=== PATIENT | male | born 1985 | race African-American/Black ===

== ENCOUNTER 2019-12-08 22:59 | Emergency (ER) | payer MEDICAID ==
[~2019-12-08] VITALS: Ht 175.3 cm; Wt 70.0 kg
[2019-12-08] MEDS ORDERED: ONDANSETRON HCL 4MG/2ML INJ IV STA (23:45)
[2019-12-08] MEDS ORDERED: MORPHINE SULFATE 4 MG/ML CPJ (NOT FOR IM USE) IV STA (23:45)
[2019-12-09] MEDS ORDERED: VANCOMYCIN 1 G PREMIX 200 ML IV SCH (00:15)
[2019-12-09] MEDS ORDERED: AZITHROMYCIN 500 MG in DEXT 5% WATER 250 ML IV SCH (00:15)
[2019-12-09] MEDS ORDERED: PIPERACILLIN/TAZOBACTAM 3.375GM/50ML PREMIX IV ONE (00:15)
[2019-12-09 00:22] LABS: BASOPHILS % 1.1 % (0.0-2.0); EOSINOPHILS % 1.4 % (0.0-5.0); HEMATOCRIT. 38.7 % (42.0-52.0); HEMOGLOBIN. 12.7 g/dL (14.0-18.0); LYMPHOCYTES % 34.6 % (20.0-50.0); MEAN CORPUSCULAR HEMOGLOBIN 30.5 pg (28.0-32.0); MEAN CORPUSCULAR VOLUME 92.9 fL (80.0-94.0); MEAN PLATELET VOLUME 7.3 fl (7.4-10.4); MONOCYTES % 10.8 % (2.0-8.0); NEUTROPHILS % 52.1 % (40.0-76.0); PLATELET 261 x1000/uL (130-400); RED BLOOD CELL COUNT 4.17 mill/uL (4.7-6.1); RED CELL DISTRIBUTION WIDTH 14.2 % (11.6-14.6)
[2019-12-09 00:28] LABS: CHLORIDE 107 mEq/L (98-107)
[2019-12-09 00:35] LABS: ETHANOL BLOOD < 10 mg/dL
[2019-12-09 00:39] LABS: CLARITY URINE CLEAR (CLEAR); COLOR URINE YELLOW (YELLOW); KETONES URINE NEGATIVE (NEGATIVE); LEUKOCYTE ESTERASE URINE NEGATIVE (NEGATIVE); NITRITE URINE NEGATIVE (NEGATIVE); OCCULT BLOOD URINE TRACE (NEGATIVE); PROTEIN URINE NEGATIVE (NEGATIVE); SPECIFIC GRAVITY URINE 1.008 (1.005-1.030); UROBILINOGEN URINE 0.2 E.U./dL (0.2-1.0)
[2019-12-09] MEDS ORDERED: PIPERACILLIN/TAZ 3.375G PREMIX 50 ML IV NR (00:45)
[2019-12-09 01:09] LABS: *BENZODIAZEPINES SCREEN URINE NEGATIVE (NEGATIVE); *COCAINE SCREEN URINE NEGATIVE (NEGATIVE); METHADONE URINE SCREEN NEGATIVE (NEGATIVE); OPIATES URINE SCREEN NEGATIVE (NEGATIVE); PHENCYCLIDINE URINE SCREEN NEGATIVE (NEGATIVE)
[2019-12-09 01:10] LABS: *AMPHETAMINES SCREEN URINE NEGATIVE (NEGATIVE); *BARBITURATES SCREEN URINE NEGATIVE (NEGATIVE); CANNABINOID URINE SCREEN PRESUMTIVE POSITIVE (NEGATIVE)
[2019-12-09 03:52] VITALS: BP 117/68
== END 2019-12-09 03:53 | disposition home or self-care (01) ==
LOC: ER 22:59
DX: J18.9 Pneumonia, unspecified organism (principal); R07.89 Other chest pain; D64.9 Anemia, unspecified; J45.909 Unspecified asthma, uncomplicated; F12.10 Cannabis abuse, uncomplicated; Z90.49 Acquired absence of other specified parts of digestive tract
CPT/HCPCS: 36415; 71045; 80053; 80305; 80320; 81003; 83605; 83690; 83880; 84484; 85025; 86850; 86900; 86901; 93005; 96365; 96366; 96367; 96368; 96375; 99284; J0456; J2270; J2405; J2543; J3370; J7060; G0480

== ENCOUNTER 2019-12-20 15:29 | Emergency (ER) | payer MEDICAID ==
[~2019-12-20] VITALS: Ht 180.3 cm; Wt 73.0 kg
[2019-12-20] MEDS ORDERED: ALBUTEROL (0.083%) 2.5MG/3ML NEB HHN STA (16:57)
[2019-12-20] MEDS ORDERED: IPRATROPIUM BROMIDE (0.02%) 0.5MG/2.5ML NEB HHN STA (16:57)
[2019-12-20] MEDS ORDERED: LEVOFLOXACIN 750MG PREMIX 150 ML IV ONE (17:45)
[2019-12-20] MEDS ORDERED: SODIUM CHLORIDE 0.9% 1000ML BAG (SEPSIS BOLUS) IV ONE (17:45)
[2019-12-20 18:08] LABS: BG CARBOXYHEMOGLOBIN 2.8 % (0.5-1.5); BG DEOXYHEMOGLOBIN 2.7 % (0.0-5.0); BG FRACTION INSPIRED OXYGEN 21; BG HCO3 ACT 24.4 mmol/L (22.0-26.0); BG METHEMOGLOBIN 0.1 % (0.0-1.5); BG OXYGEN SATURATION 97.2 % (92.0-98.5); BG OXYHEMOGLOBIN 94.4 % (94.0-97.0); BG PCO2 31.4 mmHg (35.0-45.0); BG PH 7.508 (7.350-7.450); BG PO2 85.9 mmHg (75.0-100.0); BG SAMPLE SITE RIGHT RADIAL; BG TOTAL HEMOGLOBIN 12.7 g/dL (12.0-18.0); BG VENT MODE ROOM AIR
[2019-12-20 18:18] LABS: BASOPHILS % 1.3 % (0.0-2.0); EOSINOPHILS % 2.3 % (0.0-5.0); HEMATOCRIT. 36.4 % (42.0-52.0); HEMOGLOBIN. 12.1 g/dL (14.0-18.0); LYMPHOCYTES % 41.3 % (20.0-50.0); MEAN CORPUSCULAR HEMOGLOBIN 30.4 pg (28.0-32.0); MEAN CORPUSCULAR VOLUME 91.4 fL (80.0-94.0); MEAN PLATELET VOLUME 6.7 fl (7.4-10.4); MONOCYTES % 7.6 % (2.0-8.0); NEUTROPHILS % 47.5 % (40.0-76.0); PLATELET 385 x1000/uL (130-400); RED BLOOD CELL COUNT 3.99 mill/uL (4.7-6.1); RED CELL DISTRIBUTION WIDTH 13.3 % (11.6-14.6)
[2019-12-20 18:23] LABS: CHLORIDE 103 mEq/L (98-107)
[2019-12-20] MEDS ORDERED: HYDROCODONE/ACETAMINOPHEN 5/325MG TABLET PO ONE (20:00)
[2019-12-20] MEDS ORDERED: WATER IV SCH (20:15)
[2019-12-20] MEDS ORDERED: CEFTRIAXONE SODIUM 1 G/VIAL IV ONE (20:15)
[2019-12-20] MEDS ORDERED: DEXT 5% IV SCH (20:15)
[2019-12-20] MEDS ORDERED: PENTAMIDINE ISETHIONATE IV SCH (20:15)
[2019-12-20] MEDS ORDERED: AZITHROMYCIN 500 MG in DEXT 5% WATER 250 ML IV SCH (20:15)
[2019-12-20] MEDS ORDERED: SULFAMETHOXAZOLE/TRIMETHOPRIM 800/160MG TABLET PO ONE (22:15)
[2019-12-20] MEDS ORDERED: ONDANSETRON HCL 4MG/2ML INJ IV ONE (23:30)
[2019-12-20] MEDS ORDERED: MORPHINE SULFATE 4 MG/ML CPJ (NOT FOR IM USE) IV ONE (23:30)
[2019-12-21] MEDS ORDERED: LEVOFLOXACIN 750MG PREMIX 150 ML IV NR (04:15)
[2019-12-21] MEDS: MORPHINE SULFATE 2 MG/ML CPJ (NOT FOR IM USE) IV PRN ×2 (04:22→08:46)
[2019-12-21 04:44] LABS: CLARITY URINE CLEAR (CLEAR); COLOR URINE YELLOW (YELLOW); KETONES URINE NEGATIVE (NEGATIVE); LEUKOCYTE ESTERASE URINE NEGATIVE (NEGATIVE); NITRITE URINE NEGATIVE (NEGATIVE); OCCULT BLOOD URINE NEGATIVE (NEGATIVE); PH URINE 6.5 (4.5-8.0); PROTEIN URINE NEGATIVE (NEGATIVE); SPECIFIC GRAVITY URINE 1.016 (1.005-1.030)
[2019-12-21] MEDS ORDERED: IPRATROPIUM/ALBUTEROL 0.5-3(2.5)MG/3ML NEB HHN PRN (08:45)
[2019-12-21] MEDS ORDERED: ACETAMINOPHEN 325MG TABLET PO PRN (08:45)
[2019-12-21] MEDS ORDERED: BENZONATATE 100MG CAPSULE PO PRN (08:45)
[2019-12-21] MEDS ORDERED: HYDROCODONE/ACETAMINOPHEN 5/325MG TABLET PO PRN (08:45)
[2019-12-21] MEDS ORDERED: ONDANSETRON HCL 4MG/2ML INJ IV PRN (08:45)
[2019-12-21] MEDS ORDERED: POTASSIUM CHLORIDE 20MEQ TABLET SR PO NR (08:45)
[2019-12-21] MEDS ORDERED: METHYLPREDNISOLONE SOD SUCC 40 MG/ML VIAL IV SCH (09:00)
[2019-12-21 09:27] LABS: LDL CHOLESTEROL 59 mg/dL (5-100)
[2019-12-21 09:28] LABS: HDL CHOLESTEROL 36 mg/dL (40-59)
[2019-12-21] MEDS ORDERED: KETOROLAC 30MG/ML VIAL IV NR (09:45)
[2019-12-21] MEDS ORDERED: LEVO750T21 MT (09:49)
[2019-12-21 10:24] VITALS: BP 124/74
[2019-12-21] MEDS ORDERED: IPRATROPIUM/ALBUTEROL 0.5-3(2.5)MG/3ML NEB HHN SCH (12:00)
[2019-12-21] MEDS ORDERED: KETOROLAC 30MG/ML VIAL IV PRN (15:00)
[2019-12-22] MEDS ORDERED: LEVOFLOXACIN 750MG PREMIX 150 ML IV SCH (03:00)
[2019-12-22 09:10] LABS: % CD 3 POS. LYMPHOCYTES 67.7 % (57.5-86.2); % CD 4 POS. LYMPHOCYTES 37.6 % (30.8-58.5); % CD 8 POS. LYMPH 30.7 % (12.0-35.5); ABSOLUTE CD 3 2370 /uL (622-2402); ABSOLUTE CD 4 HELPER 1316 /uL (359-1519); ABSOLUTE CD 8 SUPPRESSOR 1075 /uL (109-897); ABSOLUTE EOSINOPHILS 0.3 x10E3/uL (0.0-0.4); ABSOLUTE LYMPHOCYTES 3.5 x10E3/uL (0.7-3.1); ABSOLUTE NEUTROPHILS 5.7 x10E3/uL (1.4-7.0); BASOPHILS 0 % (Not Estab.); CD4/CD8 RATIO 1.22 (0.92-3.72); HEMATOCRIT 34.8 % (37.5-51.0); HEMOGLOBIN 11.2 g/dL (13.0-17.7); IMMATURE GRANULOCYTES 0 % (Not Estab.); LYMPHOCYTES 33 % (Not Estab.); MEAN CORPUSCULAR HEMOGLOBIN 29.3 pg (26.6-33.0); MEAN CORPUSCULAR HGB CONC. 32.2 g/dL (31.5-35.7); MEAN CORPUSCULAR VOLUME 91 fL (79-97); MONOCYTES 10 % (Not Estab.); NEUTROPHILS 54 % (Not Estab.); PLATELETS 426 x10E3/uL (150-450); RBC 3.82 x10E6/uL (4.14-5.80); RED CELL DISTRIBUTION WIDTH 13.8 % (11.6-15.4); WBC 10.5 x10E3/uL (3.4-10.8)
== END 2019-12-21 11:42 | disposition left against medical advice (07) ==
LOC: ER 15:29 → EDBEDREQ 23:28 → EDBEDREQTM 23:30 → EDBEDREQ 12-21 02:14 → EDBEDREQDT 12-21 02:14 → CANBEDREQ 12-21 11:23 → ER 12-21 11:42
DX: J18.9 Pneumonia, unspecified organism (principal); J45.901 Unspecified asthma with (acute) exacerbation; D64.9 Anemia, unspecified; E87.6 Hypokalemia; F17.210 Nicotine dependence, cigarettes, uncomplicated; F12.10 Cannabis abuse, uncomplicated; Z90.49 Acquired absence of other specified parts of digestive tract
CPT/HCPCS: 36415; 36600; 71045; 80053; 80061; 81003; 82375; 82805; 83605; 83880; 84443; 84484; 85025; 86359; 86360; 87040; 87086; 93005; 94640; 99285; J0456; J0696; J1885; J1956; J2270; J2405; J2920; J7030; J7060; J7610; J3490

== ENCOUNTER 2020-10-04 09:07 | Emergency (ER) | payer MEDICAID, MEDICARE ==
[~2020-10-04] VITALS: Ht 180.3 cm; Wt 80.0 kg
[~2020-10-04 09:07] MED LIST: LEVO750T21 MT
[2020-10-04] MEDS ORDERED: ASPIRIN 325MG EC TABLET PO ONE (09:45)
[2020-10-04 10:24] LABS: BASOPHILS % 1.3 % (0.0-2.0); HEMATOCRIT. 40.2 % (42.0-52.0); HEMOGLOBIN. 13.5 g/dL (14.0-18.0); LYMPHOCYTES % 52.4 % (20.0-50.0); MEAN CORPUSCULAR HEMOGLOBIN 30.2 pg (28.0-32.0); MEAN CORPUSCULAR VOLUME 90.2 fL (80.0-94.0); MEAN PLATELET VOLUME 7.5 fl (7.4-10.4); MONOCYTES % 8.5 % (2.0-8.0); NEUTROPHILS % 31.8 % (40.0-76.0); PLATELET 214 x1000/uL (130-400); RED BLOOD CELL COUNT 4.46 mill/uL (4.7-6.1); RED CELL DISTRIBUTION WIDTH 13.6 % (11.6-14.6)
[2020-10-04 10:34] LABS: CHLORIDE 108 mEq/L (98-107)
[2020-10-04] MEDS ORDERED: ONDANSETRON HCL 4MG/2ML INJ IV NR (10:54)
[2020-10-04] MEDS ORDERED: MORPHINE SULFATE 4 MG/ML CPJ (NOT FOR IM USE) IV NR (10:54)
[2020-10-04] MEDS ORDERED: SODIUM CHLORIDE 0.9% 1,000 ML IV ONE (11:00)
[2020-10-04 15:00] VITALS: BP 108/74
== END 2020-10-04 15:56 | disposition home or self-care (01) ==
LOC: ER 09:07
DX: F15.10 Other stimulant abuse, uncomplicated (principal); R07.89 Other chest pain; J45.909 Unspecified asthma, uncomplicated; Z87.01 Personal history of pneumonia (recurrent); Z90.49 Acquired absence of other specified parts of digestive tract
CPT/HCPCS: 36415; 71045; 80053; 83605; 83880; 84484; 85025; 85379; 87040; 93005; 96361; 96374; 96375; 99285; C9803; J2270; J2405; U0003; Z7610